=== PATIENT | female | born 1950 | race African-American/Black ===

== ENCOUNTER 2016-11-29 08:28 | Emergency (ER) | payer MEDICARE, MEDICAID ==
[~2016-11-29] VITALS: Ht 172.7 cm; Wt 61.0 kg
[2016-11-29] MEDS ORDERED: ATOR40TA70 PO (08:38)
[2016-11-29] MEDS ORDERED: SITA50TA3 PO (08:38)
[2016-11-29] MEDS ORDERED: METO-396 PO (08:38)
[2016-11-29] MEDS ORDERED: VISCOUS LIDOCAINE 2% 15 ML UDC PO STA (09:17)
[2016-11-29] MEDS ORDERED: MAGNESIUM/ALUMINUM HYDROXIDE/SIMETHICONE 30ML UDC PO STA (09:17)
[2016-11-29] MEDS ORDERED: ONDANSETRON 4MG ODT PO STA (09:17)
[2016-11-29 09:57] LABS: BASOPHILS % 0.8 % (0.0-2.0); EOSINOPHILS % 2.9 % (0.0-5.0); HEMATOCRIT. 43.6 % (36.0-48.0); HEMOGLOBIN. 14.8 g/dL (12.0-16.0); LYMPHOCYTES % 37.8 % (20.0-50.0); MEAN CORPUSCULAR HEMOGLOBIN 33.7 pg (28.0-32.0); MEAN CORPUSCULAR VOLUME 99.3 fL (81.0-99.0); MEAN PLATELET VOLUME 8.2 fl (7.4-10.4); MONOCYTES % 5.9 % (2.0-8.0); NEUTROPHILS % 52.6 % (40.0-76.0); PLATELET 199 x1000/uL (130-400); RED BLOOD CELL COUNT 4.39 mill/uL (4.2-5.4); RED CELL DISTRIBUTION WIDTH 13.6 % (11.6-14.6)
[2016-11-29 10:00] LABS: PROTHROMBIN TIME 10.6 sec (9.4-11.6)
[2016-11-29 10:06] LABS: CARBON DIOXIDE 32 mEq/L (21-32); CHLORIDE 107 mEq/L (98-107)
[2016-11-29 10:10] LABS: CLARITY URINE CLEAR (CLEAR); COLOR URINE YELLOW (YELLOW); GLUCOSE URINE NEGATIVE (NEGATIVE); KETONES URINE NEGATIVE (NEGATIVE); LEUKOCYTE ESTERASE URINE TRACE (NEGATIVE); NITRITE URINE NEGATIVE (NEGATIVE); OCCULT BLOOD URINE NEGATIVE (NEGATIVE); PH URINE 5.5 (4.5-8.0); PROTEIN URINE NEGATIVE (NEGATIVE); SPECIFIC GRAVITY URINE 1.015 (1.005-1.030); UROBILINOGEN URINE 0.2 E.U./dL (0.2-1.0)
[2016-11-29] MEDS ORDERED: SODIUM CHLORIDE 0.9% 1,000 ML IV ONE (10:39)
[2016-11-29] MEDS ORDERED: MORPHINE SULFATE 4 MG/ML CPJ (NOT FOR IM USE) IV STA (10:39)
[2016-11-29 12:30] VITALS: BP 147/84
[2016-11-29] MEDS ORDERED: IOHEXOL-300 100 ML BOTTLE ONE (14:25)
[2016-11-29] MEDS ORDERED: SODIUM CHLORIDE 0.9% 10ML VIAL ONE (14:25)
== END 2016-11-29 14:04 | disposition home or self-care (01) ==
LOC: ER 10:00
DX: R10.32 Left lower quadrant pain (principal); Z88.0 Allergy status to penicillin; E11.9 Type 2 diabetes mellitus without complications; I10 Essential (primary) hypertension; Z88.2 Allergy status to sulfonamides
CPT/HCPCS: 36415; 74177; 80053; 81001; 83690; 85025; 85610; 96374; 99285; A4216; J2270; J7030; Q0162; Q9967

== ENCOUNTER 2021-02-05 17:30 | Emergency (ER) | payer MEDICARE, MEDICAID ==
[~2021-02-05] VITALS: Ht 170.2 cm; Wt 75.0 kg
[~2021-02-05 17:30] MED LIST: ATOR40TA70 PO; METO-396 PO; SITA50TA3 PO
[2021-02-05] MEDS ORDERED: SODIUM CHLORIDE 0.9% 1,000 ML IV ONE (18:15)
[2021-02-05] MEDS ORDERED: ONDANSETRON HCL 4MG/2ML INJ IV ONE (18:15)
[2021-02-05 19:23] LABS: BASOPHILS % 0.5 % (0.0-2.0); EOSINOPHILS % 2.4 % (0.0-5.0); HEMATOCRIT. 42.6 % (36.0-48.0); HEMOGLOBIN. 14.3 g/dL (12.0-16.0); LYMPHOCYTES % 19.4 % (20.0-50.0); MEAN CORPUSCULAR HEMOGLOBIN 32.9 pg (28.0-32.0); MEAN CORPUSCULAR VOLUME 98.1 fL (81.0-99.0); MEAN PLATELET VOLUME 9.5 fl (7.4-10.4); NEUTROPHILS % 70.7 % (40.0-76.0); PLATELET 201 x1000/uL (130-400); RED BLOOD CELL COUNT 4.35 mill/uL (4.2-5.4); RED CELL DISTRIBUTION WIDTH 13.5 % (11.6-14.6)
[2021-02-05 19:30] LABS: CLARITY URINE CLEAR (CLEAR); COLOR URINE YELLOW (YELLOW); KETONES URINE 1+ (NEGATIVE); LEUKOCYTE ESTERASE URINE NEGATIVE (NEGATIVE); NITRITE URINE NEGATIVE (NEGATIVE); OCCULT BLOOD URINE TRACE (NEGATIVE); PH URINE 5.5 (4.5-8.0); PROTEIN URINE NEGATIVE (NEGATIVE); UROBILINOGEN URINE 0.2 E.U./dL (0.2-1.0)
[2021-02-05 19:36] LABS: CHLORIDE 104 mEq/L (98-107)
[2021-02-05] MEDS ORDERED: KETOROLAC 15MG/ML VIAL IV ONE (20:15)
[2021-02-05] MEDS ORDERED: ACETAMINOPHEN 325MG TABLET PO ONE (20:15)
[2021-02-05 22:00] VITALS: BP 135/76
== END 2021-02-05 22:20 | disposition home or self-care (01) ==
LOC: ER 17:30
DX: R00.2 Palpitations (principal); R51.9 Headache, unspecified; E11.9 Type 2 diabetes mellitus without complications; E78.00 Pure hypercholesterolemia, unspecified; I10 Essential (primary) hypertension; Z90.710 Acquired absence of both cervix and uterus; Z88.2 Allergy status to sulfonamides
CPT/HCPCS: 36415; 70450; 71045; 80053; 81003; 83880; 84484; 85025; 93005; 96361; 96374; 96375; 99285; J1885; J2405; J7030